=== PATIENT | female | born 1945 | race Caucasian/White ===

== ENCOUNTER → 2019-09-10 11:54 | Outpatient (CLI) | payer MEDICARE, OTHER, SELFPAY ==
--- NOTE | 2019-09-10 12:39 | DI.RAD.S_ITS ---
PROCEDURE: XR KUB INDICATIONS: kidney stones TECHNIQUE: One view of the abdomen acquired. COMPARISON: Outside Film, CR, XR ABDOMEN 1 VIEW, 12/18/2018, 8:27. FINDINGS: Surgical changes and devices: And/or removal of left ureterovesicular stent. Bowel: Bowel gas pattern is normal. Soft tissues: Calcifications appear unchanged overlying the right renal shadow. No definitive calcifications are identified overlying the left renal shadow. Calcifications are noted within the pelvis likely phleboliths and are unchanged. Visualized solid organ contours appear normal in size. Bones: No suspicious bony lesions. IMPRESSION: Unchanged calcifications overlying the right renal shadow. Dictated by: Yakelin Hernández M.D. on 09/10/2019 at 16:11 Approved by: Yakelin Hernández M.D. on 09/10/2019 at 16:11
== END ==
PROVIDERS: Family Provider Physician Assistant Medical; PCP Physician Assistant Medical; Referring Provider Specialist; Visit Provider Specialist
DX: N20.0 Calculus of kidney (principal)
CPT/HCPCS: 74018

== ENCOUNTER → 2020-11-14 11:47 | Outpatient (CLI) | payer MEDICARE, OTHER, SELFPAY ==
--- NOTE | 2020-11-14 | DI.RAD.S_ITS ---
PROCEDURE: XR CHEST 2V INDICATIONS: cough since stroke, concerns of aspiration TECHNIQUE: 2 views of the chest were acquired. COMPARISON: None. FINDINGS: Surgical changes and devices: None. Lungs and pleura: Lungs are clear. No pleural effusions or pneumothorax. Mediastinum: Mediastinal contours are normal. Heart size is normal. Bones and chest wall: No suspicious bony abnormalities. Soft tissues appear unremarkable. IMPRESSION: No acute cardiopulmonary abnormality Dictated by: Brandon Baldwin M.D. on 11/14/2020 at 13:34 Approved by: Brandon Baldwin M.D. on 11/14/2020 at 13:34
== END ==
PROVIDERS: Family Provider Physician Assistant Medical; PCP Physician Assistant Medical; Referring Provider Physician Assistant; Visit Provider Physician Assistant
DX: R05 Cough (principal); R13.10 Dysphagia, unspecified
CPT/HCPCS: 71046

== ENCOUNTER 2021-11-22 13:30 | Outpatient (RCR) | payer MEDICARE, OTHER, SELFPAY ==
--- NOTE | 2021-07-03 18:35 | ST.OPIE ---
Visit Care Team Role Provider Type Darin Askew MD Attending Provider Non-Staff Family Provider Primary Care Provider Referring Provider Specialty: Internal Medicine Address: [address] [place] [address], [place], [address] Email: Speech-Language Pathology Initial Evaluation IN CLASSROOM TUTOR Adult Cognitive Linguistic Eval Start: 07/03/21 15:36 Freq: Status: Active Protocol: Document 07/03/21 15:38 ROBERT (Rec: 07/03/21 16:03 ROBERT [id number]) Adult Cognitive Linguistic Evaluation Session Time Visit Start Time 15:30 Visit Stop Time 16:30 Total Visit Minutes 60 Visit Information Visit Number Initial Evaluation, 03/05 Plan of Care Dates 07/03/21 - 09/28/21 Insurance Information Medicare Referral Referring Provider Dr. Darin Askew Reason for Referral CVA Setting Assessment Location Outpatient Care Visit Type Note Type Initial evaluation Next Note Type Next Note Type Treatment Note Patient Information Identification Type Name,ID Card Patient History The pt is a 75-yr-old female who 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 She spent 1 month in [facility]) followed by 2 wks in inpatient rehab prior to discharge home with . The pt and her spouse discontinued HH as they felt the staff was not reliable. The pt was seen for at [facility], 1x/ wk for ~3 mos. The pt reported having a hard time producing speech and formulating her thoughts. She felt her comprehension was strong. She enjoys using her iPad and frequently uses it for Facebook, games, internet, and movies. She is not using her computer at this time and did not express a desire for it. She communicates with family by phone or in-person visits. Her spouse reported limited opportunities for the pt to converse with others, describing both himself and the pt as introverted, and stating that they infrequently have substantive conversations at home. The pt's primary opportunity for conversation is with her daughters by phone. The couple is in the process of moving from [facility] to the [facility] to be closer to the pt's daughters and their families, who live in [place]. 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 The pt is more interested in iPad than the paper tasks that were assigned during last outpt course, per spouse report. Subjective Patient Report The pt arrived on time accompanied by her , who was present throughout and provided most of the case history supplemental to medical records and pt's verbal contributions. Assessment Oral Motor Examination Completed Yes Results Symmetrical features at rest. Minimal right side weakness during oral motor tasks. Minimal lingual deviation to right side upon protrusion and mild weakness of lateral lingual movements. Buccal and labial weakness was noted, greater on right side, during tasks involving filling cheeks with air and moving air laterally; consistent labial escape noted. The pt was able to make complete labial seal around a drinking straw, however. Informal Assessment Receptive Language Normal WNL for egocentric conversation; requires further assessment Expressive Language Normal No Formal Assessment Administration Initiated Results Word recall was informally assessed using pictures from the [place] Naming Test. The pt named pictures with 96% accuracy but with significant semantic and phonemic paraphasias. Naming errors included machine gun for tank; cat for tiger; and violin for guitar. Examples of paraphasias include cheerleece for cheerleader; bipe for pipe; and gove for glove. Correction of most paraphasias was attempted, the majority successful but often requiring several attempts. The pt benefited from slowing rate of speech and being given extended time. Similar paraphasias were noted in conversation. The pt did not appear to search for words but rather exhibited difficulty accurately articulating target words. The targets were appropriate to the conversation. No overt impairments were noted in auditory comprehension during egocentric conversation. The pt followed simple directions without difficulty. 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 She is able to express familiar topics and convey her meanings with mild-moderate burden on the listener. She demonstrates good awareness of deficits and motivation to improve. Cognitive Communication Deficits Self-awareness of Cognitive- Predictive awareness (able to Communication Deficits predict problem; impact of impairments) Concomitant Factors Concomitant Factors Other (comment) Comment Limited opportunity for communication with others. Impact on Functioning Activity Limits/Particip.Rest. Mod: Interpersonal Interactions Community Prognosis Prognosis Good Based on Cognitive status,Duration of symptoms/severity Plan of Care Speech-Language Treatment Yes Frequency 1x/wk Duration 16 wks Patient/Caregiver Education Described results of evaluation,Patient expressed understanding of evaluation, Patient expressed agreement with goals and treatment plans ,Family/caregivers expressed understanding of evaluation, Family/caregivers expressed agreement with goals and treatment plan,Patient requires further education/ training,Family/caregivers require further education/ training Short Term Goals 1. The pt will participate in further assessment of expressive and receptive language skills to guide POC. 2. The pt will perform oral motor exercises to improve control of articulators and speech precision/accuracy. 3. The pt will demonstrate understanding of speech strategies by using them with 80% accuracy in structured therapeutic tasks. Additional goals to be developed pending further assessment Mcfp Goals 1. The pt will produce speech and language WFL to improve her ability to communicate effectively and with greater ease with others. Additional goals to be developed pending further assessment Discharge Recommendations Outpatient therapy
--- NOTE | 2021-07-10 17:45 | ST.OPTN ---
Visit Care Team Role Provider Type Darin Askew MD Attending Provider Non-Staff Family Provider Primary Care Provider Referring Provider Address: [address] [place] [address], [place], [address] AIRCRAFT PAINTER Treatment Note AIRCRAFT PAINTER Treatment Note Start: 07/10/21 18:30 Freq: Status: Active Protocol: Document 07/10/21 18:30 ROBERT (Rec: 07/10/21 18:31 ROBERT [id number]) Speech Pathology Treatment Note Session Time Visit Start Time 14:30 Visit Stop Time 15:20 Total Visit Minutes 50 Visit Information Plan of Care Dates 07/03/21 - 09/28/21 Insurance Information Medicare Setting Treatment Setting Outpatient Care Next Note Type Next Note Type Treatment Note General Information Patient History The pt is a 75-yr-old female who 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 She spent 1 month in [facility]) followed by 2 wks in inpatient rehab prior to discharge home with . The pt and her spouse discontinued HH as they felt the staff was not reliable. The pt was seen for at [facility], 1x/ wk for ~3 mos. The pt reported having a hard time producing speech and formulating her thoughts. She felt her comprehension was strong. She enjoys using hers iPad and frequently uses it for Fb, games, internet, and movies. She is not using her computer at this time and didn 't express a desire for it. She communicates with family by phone or in-person visits. Her spouse reported limited opportunities for the pt to converse with others, describing both himself and the pt as introverted, and stating that they infrequently have substantive conversations at home. The pt' s primary opportunity for conversation is with her daughters by phone. The couple is in the process of moving from [facility] to the [facility] to be closer to the pt's daughters and their families, who live in [place]. Subjective Observations/Patient Presentation The pt arrived on time. No new complaints. Chief Complaint(s) Speech,Language Patient Knowledge/Awareness of AIRCRAFT PAINTER Role Good in Treatment Objective Short Term Goals 1. The pt will participate in further assessment of expressive and receptive language skills to guide POC. 2. The pt will perform oral motor exercises to improve control of articulators and speech precision/accuracy. 3. The pt will demonstrate understanding of speech strategies by using them with 80% accuracy in structured therapeutic tasks. Additional goals to be developed pending further assessment Principal Java Developer Goals 1. The pt will produce speech and language WFL to improve her ability to communicate effectively and with greater ease with others. Additional goals to be developed pending further assessment Treatment Activities Administered Golden Diagnostic Aphasia Examination (BDAE) including Golden Naming Test ( BNT), short form, with the following results: Aphasia Severity Rating Scale: (3/5) The patient can discuss almost all everyday problems with little or no assistance. Reduction of speech and/or comprehension, however, makes conversation about certain material difficult or impossible. Picture Description: FLUENCY: Phrase Length /, 100%ile; Melodic Line , 07/31, 60%%ile; Grammatical Form /, 70%ile. Phonemic and semantic paraphasias were present in > 75% of phrases. CONVERSATION/EXPOSITORY SPEECH: Simple Social Responses 6/, 50%ile AUDITORY COMPREHENSION: Basic Word Discrimination 14/16,40%; Commands 9/10, 70%ile (pt verbalized acknowledgement of error independently after the task completion); Complex Ideational Material 6/6, 100% ile. ARTICULATION: Agility /, 40% ile. RECITATION: Automatized Sequences 04/27,30%ile. REPETITION: Words 4/5, 60%ile; Sentences 1/2, 60%ile; NAMING: Responsive Naming , 100%ile; Golden Naming Test , 85%ile; Special Categories; 02/04, 100%ile PARAPHASIA: /, 20%ile, primarily phonemic (09/19, 20% ile), occasionally semantic (, 20%ile) READING: Matching Cases & Scripts 4/, 100%ile; Number Matching 04/27, 10%ile; Picture- Word Matching 02/27, 10%ile; Oral Word Reading , 100% ile; Oral Sentence Reading 03/31 , 60%ile; Oral Sentence Comprehension 2/3, 50%ile; Sentence/Paragraph Comprehension 05/28, 100%ile. WRITING: Form , 100%ile; Letter Choice , 60%ile; Motor Facility , 50%ile; Primer Words 4/4, 100%ile; Regular Phonics 2/2, 100%ile; Written Picture Naming 4/4, 100%ile;and Narrative Writing all 100%ile; Regular Phonics1/ 2, 50%ile; Common Irregular Words 3/3, 100%ile; Written Picture Naming 4/4, 100%ile; and NArrative Writing 08/04, 40 %ile. Phonemic errors included additions (stolved for solved), omissions (ouse for house), and substitutions (/b/ for /p/: Episcobal for Mandaen) Semantic errors example: foggy for falling (seen in narrative writing task). Assessment Impairments Identified Expressive language Assessment of Overall Progress Unchanged Assessment of Improvement The pt presents with moderate expressive aphasia characterized primarily by the presence of frequent phonemic and semantic paraphasias without obvious or reported WFD. Syntax, prosodic features are WNL. Pt also presents with mild receptive aphasia per BDAE results, although skills are WFL for basic conversation and therapeutic tasks. Reviewed with Patient Goals,Progress Being Made,Home Exercise Program Patient/Caregiver Understanding Good Plan Amount of Therapy Recommended 6 Months Frequency of Treatment Once a Week Length of Session 45 Minutes Therapeutic Contents Client Education,Expressive Language Training,Reading Comprehension Provided Patient/Caregiver Instruction Home Exercise Program,Plan of Care,Questions/Concerns Therapy Recommendations Continue with Current Program
--- NOTE | 2021-07-18 14:25 | ST.OPTN ---
Visit Care Team Role Provider Type Darin Askew MD Attending Provider Non-Staff Family Provider Primary Care Provider Referring Provider Address: [address] [place] [address], [place], [address] COLLABORATING SUPERVISING PHYSICIAN Treatment Note COLLABORATING SUPERVISING PHYSICIAN Treatment Note Start: 07/10/21 18:30 Freq: Status: Active Protocol: Document 07/18/21 14:30 ROBERT (Rec: 07/25/21 12:17 ROBERT [id number]) Speech Pathology Treatment Note Session Time Visit Start Time 13:30 Visit Stop Time 14:15 Total Visit Minutes 45 Visit Information Visit Number 05/03 Plan of Care Dates 07/03/21 - 09/28/21 Insurance Information Medicare Setting Treatment Setting Outpatient Care Next Note Type Next Note Type Treatment Note General Information Patient History The pt is a 75-yr-old female who 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 She spent 1 month in [facility]) followed by 2 wks in inpatient rehab prior to discharge home with . The pt and her spouse discontinued HH as they felt the staff was not reliable. The pt was seen for at [facility], 1x/ wk for ~3 mos. The pt reported having a hard time producing speech and formulating her thoughts. She felt her comprehension was strong. She enjoys using hers iPad and frequently uses it for Fb, games, internet, and movies. She is not using her computer at this time and didn 't express a desire for it. She communicates with family by phone or in-person visits. Her spouse reported limited opportunities for the pt to converse with others, describing both himself and the pt as introverted, and stating that they infrequently have substantive conversations at home. The pt' s primary opportunity for conversation is with her daughters by phone. The couple is in the process of moving from [facility] to the [facility] to be closer to the pt's daughters and their families, who live in [place]. Subjective Observations/Patient Presentation The pt arrived on time. No new complaints. Chief Complaint(s) Speech,Language Rehab Expectation/Goals: Patient Goals Improve ability to speak smoothly, easily Patient Knowledge/Awareness of COLLABORATING SUPERVISING PHYSICIAN Role Good in Treatment Objective Short Term Goals 1. The pt will participate in further assessment of expressive and receptive language skills to guide POC. 2. The pt will perform oral motor exercises to improve control of articulators and speech precision/accuracy. 3. The pt will demonstrate understanding of speech strategies by using them with 80% accuracy in structured therapeutic tasks. Additional goals to be developed pending further assessment Chcf Goals 1. The pt will produce speech and language WFL to improve her ability to communicate effectively and with greater ease with others. Additional goals to be developed pending further assessment Treatment Activities Continued assessment of oral motor speech production with DDK tasks. Pt performed WNL with /p/, /t/, and /k/ in isolation; reduced coordination, accuracy and speed observed with /p-t-k/ sequence. Recommended performing tasks as part of HEP. Instructions were provided in writing. Initiated expressive language training via education and training in tapping method using phrases and short sentences. Improved synchronizing of speech and finger tapping with practice. Improved articulatory accuracy with reduced rate of speech. Skilled feedback provided, including targeted progression of tapping strategy from structured tasks to conversation, and instructions for home practice provided in writing. Assessment Patient Response to Treatment Good Rehab Potential Good Impairments Identified Expressive language,Speech Progress Towards Goals Good Progress Assessment of Overall Progress Unchanged Assessment of Improvement The pt was responsive to education and instruction in tapping method, the use of which improved articulatory precision. Reviewed with Patient Goals,Progress Being Made,Home Exercise Program Patient/Caregiver Understanding Good Plan Amount of Therapy Recommended 6 Months Frequency of Treatment Once a Week Length of Session 45 Minutes Therapeutic Contents Client Education,Expressive Language Training,Reading Comprehension Provided Patient/Caregiver Instruction Home Exercise Program,Plan of Care,Questions/Concerns Therapy Recommendations Continue with Current Program
--- NOTE | 2021-07-30 12:36 | ST.OPTN ---
Visit Care Team Role Provider Type Darin Askew MD Attending Provider Non-Staff Family Provider Primary Care Provider Referring Provider Address: [address] [place] [address], [place], [address] AIRCRAFT ENGINE MECHANIC OVERHAUL Treatment Note AIRCRAFT ENGINE MECHANIC OVERHAUL Clinical Instructor Line Start: 07/30/21 12:22 Freq: Status: Active Protocol: Document 07/30/21 12:22 ROBERT (Rec: 07/30/21 12:22 ROBERT [id number]) Clinical Instructor Signature Clinical Instructor Clinical Instructor Yes AIRCRAFT ENGINE MECHANIC OVERHAUL Treatment Note Start: 07/10/21 18:30 Freq: Status: Active Protocol: Document 07/30/21 11:59 EK (Rec: 07/30/21 12:17 EK [id number]) Speech Pathology Treatment Note Session Time Visit Start Time 14:30 Visit Stop Time 15:20 Total Visit Minutes 50 Visit Information Visit Number 06/03 Plan of Care Dates 07/03/21 - 09/28/21 Insurance Information Medicare Setting Treatment Setting Outpatient Care Next Note Type Next Note Type Treatment Note General Information Patient History The pt is a 75-yr-old female who 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 She spent 1 month in [facility]) followed by 2 wks in inpatient rehab prior to discharge home with . The pt and her spouse discontinued HH as they felt the staff was not reliable. The pt was seen for at [facility], 1x/ wk for ~3 mos. The pt reported having a hard time producing speech and formulating her thoughts. She felt her comprehension was strong. She enjoys using hers iPad and frequently uses it for Fb, games, internet, and movies. She is not using her computer at this time and didn 't express a desire for it. She communicates with family by phone or in-person visits. Her spouse reported limited opportunities for the pt to converse with others, describing both himself and the pt as introverted, and stating that they infrequently have substantive conversations at home. The pt' s primary opportunity for conversation is with her daughters by phone. The couple is in the process of moving from [facility] to the [facility] to be closer to the pt's daughters and their families, who live in [place]. Subjective Observations/Patient Presentation The pt arrived on time. No new complaints. Session conducted and note written by student AIRCRAFT ENGINE MECHANIC OVERHAUL Desiree Corado under AIRCRAFT ENGINE MECHANIC OVERHAUL supervision. Chief Complaint(s) Speech,Language Rehab Expectation/Goals: Patient Goals Improve ability to speak smoothly, easily Patient Knowledge/Awareness of AIRCRAFT ENGINE MECHANIC OVERHAUL Role Good in Treatment Objective Short Term Goals 1. The pt will participate in further assessment of expressive and receptive language skills to guide POC. 2. The pt will perform oral motor exercises to improve control of articulators and speech precision/accuracy. 3. The pt will demonstrate understanding of speech strategies by using them with 80% accuracy in structured therapeutic tasks. Additional goals to be developed pending further assessment Dry Chain Offbearer Goals 1. The pt will produce speech and language WFL to improve her ability to communicate effectively and with greater ease with others. Additional goals to be developed pending further assessment Treatment Activities Targeted minimal pair /b/ and /p/ words/phrases in order to increase pt's awareness of her de-voicing errors as well as differentiating between the two sounds. When the pt slowed her rate of speech, accuracy increased. Provided education RE clear speech strategies. Collaborated with pt to create a list of 10 different functional phrases for HEP to continue practicing clear speech strategies. Assessment Patient Response to Treatment Good Rehab Potential Good Impairments Identified Expressive language,Speech Progress Towards Goals Good Progress Assessment of Overall Progress Unchanged Assessment of Improvement Pt was responsive to clear speech strategies; when implemented, her articulatory precision greatly improved. Pt intermittently utilized the tapping method but benefitted more from simple reminders to slow down her rate of speech. Reviewed with Patient Goals,Progress Being Made,Home Exercise Program Patient/Caregiver Understanding Good Plan Amount of Therapy Recommended 6 Months Frequency of Treatment Once a Week Length of Session 45 Minutes Therapeutic Contents Client Education,Expressive Language Training,Reading Comprehension Provided Patient/Caregiver Instruction Home Exercise Program,Plan of Care,Questions/Concerns Therapy Recommendations Continue with Current Program
--- NOTE | 2021-08-07 16:56 | ST.OPTN ---
Visit Care Team Role Provider Type Darin Askew MD Attending Provider Non-Staff Family Provider Primary Care Provider Referring Provider Address: [address] [place] [address], [place], [address] WHEELCHAIR RENTAL CLERK Treatment Note WHEELCHAIR RENTAL CLERK Clinical Instructor Line Start: 07/30/21 12:22 Freq: Status: Active Protocol: Document 08/07/21 16:56 ROBERT (Rec: 08/07/21 16:56 ROBERT [id number]) Clinical Instructor Signature Clinical Instructor Clinical Instructor Yes WHEELCHAIR RENTAL CLERK Treatment Note Start: 07/10/21 18:30 Freq: Status: Active Protocol: Document 08/07/21 13:01 EK (Rec: 08/07/21 13:18 EK [id number]) Speech Pathology Treatment Note Session Time Visit Start Time 13:30 Visit Stop Time 14:15 Total Visit Minutes 45 Visit Information Visit Number 07/03 Plan of Care Dates 07/03/21 - 09/28/21 Insurance Information Medicare Setting Treatment Setting Outpatient Care Visit Type Note Type Treatment Note Next Note Type Next Note Type Treatment Note General Information Patient History The pt is a 75-yr-old female who 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 She spent 1 month in [facility]) followed by 2 wks in inpatient rehab prior to discharge home with . The pt and her spouse discontinued as they felt the staff was not reliable. The pt was seen for at [facility], 1x/ wk for ~3 mos. The pt reported having a hard time producing speech and formulating her thoughts. She felt her comprehension was strong. She enjoys using hers iPad and frequently uses it for Fb, games, internet, and movies. She is not using her computer at this time and didn 't express a desire for it. She communicates with family by phone or in-person visits. Her spouse reported limited opportunities for the pt to converse with others, describing both himself and the pt as introverted, and stating that they infrequently have substantive conversations at home. The pt' s primary opportunity for conversation is with her daughters by phone. The couple is in the process of moving from [facility] to the [facility] to be closer to the pt's daughters and their families, who live in [place]. Subjective Observations/Patient Presentation The pt arrived on time. No new complaints. Session conducted and note written by student WHEELCHAIR RENTAL CLERK Desiree Corado under WHEELCHAIR RENTAL CLERK supervision. Chief Complaint(s) Speech,Language Rehab Expectation/Goals: Patient Goals Improve ability to speak smoothly, easily Patient Knowledge/Awareness of WHEELCHAIR RENTAL CLERK Role Good in Treatment Objective Short Term Goals 1. The pt will participate in further assessment of expressive and receptive language skills to guide POC. GOAL MET. 2. The pt will perform oral motor exercises to improve control of articulators and speech precision/accuracy. 3. The pt will demonstrate understanding of speech strategies by using them with 80% accuracy in structured therapeutic tasks. Group Home Goals 1. The pt will produce speech and language WFL to improve her ability to communicate effectively and with greater ease with others. Treatment Activities Targeted speech clarity with functional phrases, pt recited the phrases clearly in 70% of opportunities. Phrases that contained multi-syllabic words were most difficult but clarity greatly improved when pt implemented the tapping method and slowed her rate of speech. Continued training of clear speech strategies and targeted overall awareness using Apraxia Therapy itz that targets visual and auditory presentation of words/phonemes and repetition. This appeared to be helpful for the pt, especially when given the reminder to tap while saying the target word. Targeted WFD with semantic feature analysis . Pt demonstrated moderate difficulty describing the features of various objects. When given time and prompts to tap her sentence, pt's descriptions improved. Assessment Patient Response to Treatment Good Rehab Potential Good Impairments Identified Expressive language,Speech Progress Towards Goals Good Progress Assessment of Improvement Pt's articulatory precision improves when prompted to utilize tapping method but pt is not yet independently implementing the strategy herself. Pt described semantic feature analysis as stressful due to the difficulty of the task but appeared willing to continue using the method to target her WFD. Reviewed with Patient Goals,Progress Being Made,Home Exercise Program Patient/Caregiver Understanding Good Plan Amount of Therapy Recommended 6 Months Frequency of Treatment Once a Week Length of Session 45 Minutes Therapeutic Contents Client Education,Expressive Language Training,Reading Comprehension Provided Patient/Caregiver Instruction Home Exercise Program,Plan of Care,Questions/Concerns Therapy Recommendations Continue with Current Program
--- NOTE | 2021-09-04 16:05 | ST.OPTN ---
Visit Care Team Role Provider Type Darin Askew MD Attending Provider Non-Staff Family Provider Primary Care Provider Referring Provider Address: [address] [place] [address], [place], [address] ORANGE PICKER MACHINE OPERATOR Treatment Note ORANGE PICKER MACHINE OPERATOR Clinical Instructor Line Start: 07/30/21 12:22 Freq: Status: Active Protocol: Document 09/04/21 16:04 ROBERT (Rec: 09/04/21 16:04 ROBERT [id number]) Clinical Instructor Signature Clinical Instructor Clinical Instructor Yes ORANGE PICKER MACHINE OPERATOR Treatment Note Start: 07/10/21 18:30 Freq: Status: Active Protocol: Document 09/04/21 15:28 EK (Rec: 09/04/21 15:51 EK [id number]) Speech Pathology Treatment Note Session Time Visit Start Time 13:30 Visit Stop Time 14:20 Total Visit Minutes 50 Visit Information Visit Number 08/03 Plan of Care Dates 07/03/21 - 09/28/21 Insurance Information Medicare Setting Treatment Setting Outpatient Care Visit Type Note Type Treatment Note Next Note Type Next Note Type Treatment Note General Information Patient History The pt is a 75-yr-old female who 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 She spent 1 month in [facility]) followed by 2 wks in inpatient rehab prior to discharge home with . The pt and her spouse discontinued as they felt the staff was not reliable. The pt was seen for ST at [facility], 1x/ wk for ~3 mos. The pt reported having a hard time producing speech and formulating her thoughts. She felt her comprehension was strong. She enjoys using hers iPad and frequently uses it for Fb, games, internet, and movies. She is not using her computer at this time and didn 't express a desire for it. She communicates with family by phone or in-person visits. Her spouse reported limited opportunities for the pt to converse with others, describing both himself and the pt as introverted, and stating that they infrequently have substantive conversations at home. The pt' s primary opportunity for conversation is with her daughters by phone. The couple is in the process of moving from [facility] to the [facility] to be closer to the pt's daughters and their families, who live in [place]. Subjective Identification Type Name Others Present Additional Therapist Observations/Patient Presentation The pt arrived on time. No new complaints. Session conducted and note written by student ORANGE PICKER MACHINE OPERATOR Desiree Corado under ORANGE PICKER MACHINE OPERATOR supervision. Chief Complaint(s) Speech,Language Rehab Expectation/Goals: Patient Goals Improve ability to speak smoothly, easily Patient Knowledge/Awareness of ORANGE PICKER MACHINE OPERATOR Role Good in Treatment Parent/Caretake Knowledge/Awareness of Good ORANGE PICKER MACHINE OPERATOR Role in Treatment Objective Short Term Goals 1. The pt will perform oral motor exercises to improve control of articulators and speech precision/accuracy. 2. The pt will demonstrate understanding of speech strategies by using them with 80% accuracy in structured therapeutic tasks. Supervisor Maintenance And Custodians Goals 1. The pt will produce speech and language WFL to improve her ability to communicate effectively and with greater ease with others. Treatment Activities Targeted speech clarity with functional phrases, pt recited the phrases clearly in 70% of opportunities. When prompted to tap and slow her rate of speech, clarity increased to 90%. Targeted WFD with semantic feature analysis. Pt demonstrated mild difficulty describing the features of various objects. As the session progressed, her descriptions became more detailed. Pt demonstrated WFD four times over the course of the session. Provided pt with materials targeting various skills (i.e. word recall, categorization, etc.) to incorporate into her HEP. With items that could be categorized as cleaning products pt required mod-max cueing in order to list 7 items. One instance of WFD during this task caused a communication breakdown in which pt was unable to name/ describe her target word. Next session will continue to target listing items in categories. Assessment Patient Response to Treatment Good Rehab Potential Good Impairments Identified Expressive language,Speech Progress Towards Goals Good Progress Assessment of Improvement Pt continues to require min- mod cueing to implement tapping during articulation breakdowns. When tapping is utilized, her speech clarity greatly improves. Pt required less cueing compared to last session to produce relevant descriptions during semantic feature analysis task. Pt demonstrated significant difficulty naming items in categories, will continue to target this skill in order to improve pt's word recall. Reviewed with Patient Goals,Progress Being Made,Home Exercise Program Patient/Caregiver Understanding Good Plan Amount of Therapy Recommended 6 Months Frequency of Treatment Once a Week Length of Session 45 Minutes Therapeutic Contents Client Education,Expressive Language Training,Reading Comprehension Provided Patient/Caregiver Instruction Home Exercise Program,Plan of Care,Questions/Concerns Therapy Recommendations Continue with Current Program
--- NOTE | 2021-09-11 15:11 | ST.OPTN ---
Visit Care Team Role Provider Type Darin Askew MD Attending Provider Non-Staff Family Provider Primary Care Provider Referring Provider Address: [address] [place] [address], [place], [address] SCANNING COORDINATOR Treatment Note SCANNING COORDINATOR Clinical Instructor Line Start: 07/30/21 12:22 Freq: Status: Active Protocol: Document 09/11/21 15:10 ROBERT (Rec: 09/11/21 15:10 ROBERT [id number]) Clinical Instructor Signature Clinical Instructor Clinical Instructor Yes SCANNING COORDINATOR Treatment Note Start: 07/10/21 18:30 Freq: Status: Active Protocol: Document 09/11/21 14:49 EK (Rec: 09/11/21 15:07 EK [id number]) Speech Pathology Treatment Note Session Time Visit Start Time 13:30 Visit Stop Time 14:20 Total Visit Minutes 50 Visit Information Visit Number 09/02 Plan of Care Dates 07/03/21 - 09/28/21 Insurance Information Medicare Setting Treatment Setting Outpatient Care Visit Type Note Type Treatment Note Next Note Type Next Note Type Treatment Note General Information Patient History The pt is a 75-yr-old female who 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 She spent 1 month in [facility]) followed by 2 wks in inpatient rehab prior to discharge home with . The pt and her spouse discontinued as they felt the staff was not reliable. The pt was seen for ST at [facility], 1x/ wk for ~3 mos. The pt reported having a hard time producing speech and formulating her thoughts. She felt her comprehension was strong. She enjoys using hers iPad and frequently uses it for Fb, games, internet, and movies. She is not using her computer at this time and didn 't express a desire for it. She communicates with family by phone or in-person visits. Her spouse reported limited opportunities for the pt to converse with others, describing both himself and the pt as introverted, and stating that they infrequently have substantive conversations at home. The pt' s primary opportunity for conversation is with her daughters by phone. The couple is in the process of moving from [facility] to the [facility] to be closer to the pt's daughters and their families, who live in [place]. Subjective Identification Type Name Others Present Additional Therapist Observations/Patient Presentation The pt arrived on time. No new complaints. Session conducted and note written by student SCANNING COORDINATOR Desiree Corado under SCANNING COORDINATOR supervision. Chief Complaint(s) Speech,Language Rehab Expectation/Goals: Patient Goals Improve ability to speak smoothly, easily Patient Knowledge/Awareness of SCANNING COORDINATOR Role Good in Treatment Parent/Caretake Knowledge/Awareness of Good SCANNING COORDINATOR Role in Treatment Patient/Caregiver Compliance with Home Good Exercise Program Objective Short Term Goals 1. The pt will perform oral motor exercises to improve control of articulators and speech precision/accuracy. 2. The pt will demonstrate understanding of speech strategies by using them with 80% accuracy in structured therapeutic tasks. Cut Press Operator Goals 1. The pt will produce speech and language WFL to improve her ability to communicate effectively and with greater ease with others. Treatment Activities Targeted word recall/mental organization by listing words that belong a category (e.g. household tasks, appliances, etc). Pt correctly listed items with 79% accuracy. When given descriptions and asked to name the item described, the pt was >85% accurate, improving as she progressed with the task. Targeted speech clarity through reading passages, pt was 82% intelligible reading poems. Assessment Patient Response to Treatment Good Rehab Potential Good Impairments Identified Expressive language,Speech Progress Towards Goals Good Progress Assessment of Improvement Pt word recall was improved compared to last session. Today, pt only required min- mod cueing and by the end of the task, she was generating most of the words independently. Pt also demonstrated good carryover by independently tapping during articulation breakdowns and moments of WFD. While reading poems, the pt had more difficulty with fricatives and consonant blends. Reviewed with Patient Goals,Progress Being Made,Home Exercise Program Patient/Caregiver Understanding Good Plan Amount of Therapy Recommended 6 Months Frequency of Treatment Once a Week Length of Session 45 Minutes Therapeutic Contents Client Education,Expressive Language Training,Reading Comprehension Provided Patient/Caregiver Instruction Home Exercise Program,Plan of Care,Questions/Concerns Therapy Recommendations Continue with Current Program
--- NOTE | 2021-09-18 15:30 | ST.OPTN ---
Visit Care Team Role Provider Type Darin Askew MD Attending Provider Non-Staff Family Provider Primary Care Provider Referring Provider Address: [address] [place] [address], [place], [address] TRUSTEE OF ESTATE Treatment Note TRUSTEE OF ESTATE Clinical Instructor Line Start: 07/30/21 12:22 Freq: Status: Active Protocol: Document 09/11/21 15:10 ROBERT (Rec: 09/11/21 15:10 ROBERT [id number]) Clinical Instructor Signature Clinical Instructor Clinical Instructor Yes TRUSTEE OF ESTATE Treatment Note Start: 07/10/21 18:30 Freq: Status: Active Protocol: Document 09/18/21 17:39 ROBERT (Rec: 09/18/21 17:40 ROBERT [id number]) Speech Pathology Treatment Note Session Time Visit Start Time 14:30 Visit Stop Time 15:25 Total Visit Minutes 55 Visit Information Visit Number 10/03 Plan of Care Dates 07/03/21 - 09/28/21 Insurance Information Medicare Setting Treatment Setting Outpatient Care Visit Type Note Type Treatment Note Next Note Type Next Note Type Treatment Note General Information Patient History The pt is a 75-yr-old female who 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 She spent 1 month in [facility]) followed by 2 wks in inpatient rehab prior to discharge home with . The pt and her spouse discontinued as they felt the staff was not reliable. The pt was seen for ST at [facility], 1x/ wk for ~3 mos. The pt reported having a hard time producing speech and formulating her thoughts. She felt her comprehension was strong. She enjoys using hers iPad and frequently uses it for Fb, games, internet, and movies. She is not using her computer at this time and didn 't express a desire for it. She communicates with family by phone or in-person visits. Her spouse reported limited opportunities for the pt to converse with others, describing both himself and the pt as introverted, and stating that they infrequently have substantive conversations at home. The pt' s primary opportunity for conversation is with her daughters by phone. The couple is in the process of moving from [facility] to the [facility] to be closer to the pt's daughters and their families, who live in [place]. Subjective Identification Type Name Others Present Additional Therapist Observations/Patient Presentation The pt arrived on time. Forgot her completed HEP worksheets at home but stated that all were completed. She reported an appropriate amount of challenge from tasks. No new complaints; however, the pt was occasionally tearful throughout the session upon reflection/conversation about effects of stroke. When asked if she has support in friends and family, she stated her daughter, granddaughter and , though did not discuss details but instead became tearful. She reported frustration with speech impairments, resulting from both occ WFDs but greater impact of difficulty organizing thoughts into verbal expression. She reported great assistance from tapping, which she uses consistently when talking to her daughter and sister. With this strategy she reports being able to form thoughts into sentences. Chief Complaint(s) Speech,Language Rehab Expectation/Goals: Patient Goals Improve ability to speak smoothly, easily Patient Knowledge/Awareness of TRUSTEE OF ESTATE Role Good in Treatment Parent/Caretake Knowledge/Awareness of Good TRUSTEE OF ESTATE Role in Treatment Patient/Caregiver Compliance with Home Good Exercise Program Objective Short Term Goals 1. The pt will perform oral motor exercises to improve control of articulators and speech precision/accuracy. 2. The pt will demonstrate understanding of speech strategies by using them with 80% accuracy in structured therapeutic tasks. Head Men'S Golf Coach Goals 1. The pt will produce speech and language WFL to improve her ability to communicate effectively and with greater ease with others. Treatment Activities Skilled counseling was provided to the pt with empathy toward the impacts of stroke on daily life and relationships. TRUSTEE OF ESTATE recommended local stroke support group and provided details. The pt performed expressive language tasks: Scrambled sentences targeting thought organization via sentence structure and syntax: 82% acc, aided by instruction of S-V-O sentence structure as guide. Sentence and story completions: 100% acc. Pt initially required extended time and occ examples, likely d/t learning effect, which reduced over the course of the task. Novel sentences were interesting and frequently moderately complex in structure (e.g., compound sentences and/or including dependent clauses). Without use of tapping, the pt's speech was frequently garbled from paraphasias, reducing intelligibility/ comprehensibility to ~70%. Significant improvement with >85% accuracy was achieved with tapping strategy. HEP packet was further developed with instructions provided orally and in writing and with demonstration. All questions were answered. Assessment Patient Response to Treatment Good Rehab Potential Good Impairments Identified Expressive language,Speech Progress Towards Goals Good Progress Assessment of Improvement Impairments in areas of word recall and, to a greater degree, thought/language organization continue to have great impact on the pt's ability to express herself. These are exacerbated by increased rate of speech and significantly reduced with use of tapping strategy. Rapid rate of speech results in increased paraphasias and pt frustration. She demonstrates excellent awareness of benefits of tapping with carryover to functional conversations. Prompts (usually provided by demonstration) are frequently required for the pt to use tapping during therapy sessions. Once familiar with exercises, the pt performed well unscrambling sentences of 4-6 words. She benefited from review of typical [place] S-V-O sentence structure. Often starting with verb identification or question words was helpful to get started. Similarly, once familiar with the tasks, she generated creative novel completions of sentences and simple stories with excellent word choices and syntax. The pt was receptive to counseling and expressed interest in the support group. Suspect she is feeling isolated and experiencing sadness, perhaps grief, from effects of stroke. Grief/ emotional counseling may be very beneficial for this patient, as well as participation in support group and other social opportunities that accommodate her language challenges. Reviewed with Patient Goals,Progress Being Made,Home Exercise Program Patient/Caregiver Understanding Good Plan Amount of Therapy Recommended 6 Months Frequency of Treatment Once a Week Length of Session 45 Minutes Therapeutic Contents Client Education,Expressive Language Training,Reading Comprehension Provided Patient/Caregiver Instruction Home Exercise Program,Plan of Care,Questions/Concerns Therapy Recommendations Continue with Current Program Suggested Referral Other Other Referrals Grief/emotional counseling
--- NOTE | 2021-09-19 11:44 | ST-OP ANOTE ---
Physical, Occupational & Speech Therapy At [facility] Speech Therapy Note 09/19/21: Treatment note of 09/18/21 with recommendation for referral to grief/emotional counseling was faxed by JELLY FILTER TENDER to the pt's PCP, Dr. Darin Askew.
--- NOTE | 2021-09-24 13:40 | ST.OPTN ---
Visit Care Team Role Provider Type Darin Askew MD Attending Provider Non-Staff Family Provider Primary Care Provider Referring Provider Address: [address] [place] [address], [place], [address] INDUSTRIAL ECONOMICS PROFESSOR Treatment Note INDUSTRIAL ECONOMICS PROFESSOR Clinical Instructor Line Start: 07/30/21 12:22 Freq: Status: Active Protocol: Document 09/11/21 15:10 ROBERT (Rec: 09/11/21 15:10 ROBERT [id number]) Clinical Instructor Signature Clinical Instructor Clinical Instructor Yes INDUSTRIAL ECONOMICS PROFESSOR Treatment Note Start: 07/10/21 18:30 Freq: Status: Active Protocol: Document 09/24/21 15:25 ROBERT (Rec: 09/24/21 15:26 ROBERT [id number]) Speech Pathology Treatment Note Session Time Visit Start Time 10:30 Visit Stop Time 11:50 Total Visit Minutes 50 Visit Information Visit Number 11/03 Plan of Care Dates 07/03/21 - 09/28/21 Insurance Information Medicare Setting Treatment Setting Outpatient Care Visit Type Note Type Treatment Note Next Note Type Next Note Type Treatment Note General Information Patient History The pt is a 75-yr-old female who 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 She spent 1 month in [facility]) followed by 2 wks in inpatient rehab prior to discharge home with . The pt and her spouse discontinued as they felt the staff was not reliable. The pt was seen for ST at [facility], 1x/ wk for ~3 mos. The pt reported having a hard time producing speech and formulating her thoughts. She felt her comprehension was strong. She enjoys using hers iPad and frequently uses it for Fb, games, internet, and movies. She is not using her computer at this time and didn 't express a desire for it. She communicates with family by phone or in-person visits. Her spouse reported limited opportunities for the pt to converse with others, describing both himself and the pt as introverted, and stating that they infrequently have substantive conversations at home. The pt' s primary opportunity for conversation is with her daughters by phone. The couple is in the process of moving from [facility] to the [facility] to be closer to the pt's daughters and their families, who live in [place]. Subjective Identification Type Name Others Present Additional Therapist Observations/Patient Presentation The pt arrived on time with completed HEP tasks. Her was present for part of the session. He had some questions related to practices that would improve the couple 's ability to communicate with each other at home, secondary to the pt's stroke effects and his hearing loss. Chief Complaint(s) Speech,Language Rehab Expectation/Goals: Patient Goals Improve ability to speak smoothly, easily Patient Knowledge/Awareness of INDUSTRIAL ECONOMICS PROFESSOR Role Good in Treatment Parent/Caretake Knowledge/Awareness of Good INDUSTRIAL ECONOMICS PROFESSOR Role in Treatment Patient/Caregiver Compliance with Home Good Exercise Program Objective Short Term Goals 1. The pt will perform oral motor exercises to improve control of articulators and speech precision/accuracy. 2. The pt will demonstrate understanding of speech strategies by using them with 80% accuracy in structured therapeutic tasks. [facility] Goals 1. The pt will produce speech and language WFL to improve her ability to communicate effectively and with greater ease with others. Treatment Activities Reviewed the pt's answers to HEP tasks, ~85% acc. The pt reported the tasks were challenging but enjoyable. The pt corrected and completed new crossword puzzle items, naming words and synonyms from descriptions and letter cues requiring mod prompts particularly to correct errors . In these cases she exhibited difficulty shifting away from the errored answer, which in most cases fit the description but not the letter spaces in the puzzle. The pt's handwriting was largely legible and only 2 spelling errors were observed. The pt stated this is not her typical handwriting, with reduced legibility occurring post- stroke. Additionally, the pt reported having occasional difficulty tracking conversation from others when language becomes lengthy, complex, or the person speaks very quickly. Education and feedback was provided to the pt and her . During discussions of the consequences of the pt's stroke and importance of rehab , she again became tearful, indicating the personal impact of these effects. The couple expressed interest in attending the local Stroke Support Group, which is highly recommended. The pt's spouse again reported that the couple do not engage in extensive conversations at home, but noted that when the pt is with female friends and family members, she engages quite a lot more, which the pt confirmed. She stated that use of the tapping strategy enables her to better participate in such conversations. This was demonstrated as the pt used this strategy during our discussion, with prompting, improving speech fluidity and articulation and diminishing the majority of paraphasias. The pt's 's questions were answered with recommendations to improve communication between the couple at home, including getting each other's attention prior to stating important information and speaking face- to-face, which may require effort from both of them to move to the presence of the other. This should reduce conversationa breakdowns that stem from either the pt's reduced speech intelligibility and her 's hearing loss. The couple verbalized agreement. Discussed POC and agreed that, in light of this INDUSTRIAL ECONOMICS PROFESSOR's upcoming departure from this clinic, the pt would continue her POC with a different INDUSTRIAL ECONOMICS PROFESSOR at this clinic. Assessment Patient Response to Treatment Good Rehab Potential Good Impairments Identified Expressive language,Speech Progress Towards Goals Good Progress Assessment of Improvement The pt performed word recall and writing tasks well with some errors in identifying synonyms to fit the parameters of crossword puzzles. HEP tasks appear to be appropriate in complexity for the pt. Mild micrographia was observed with handwriting, though writing was largely legible. Recommend further handwriting and auditory receptive language skills assessment and treatment be incorporated into the pt's POC. Reviewed with Patient Goals,Progress Being Made,Home Exercise Program Patient/Caregiver Understanding Good Plan Amount of Therapy Recommended 6 Months Frequency of Treatment Once a Week Length of Session 45 Minutes Therapeutic Contents Client Education,Expressive Language Training,Reading Comprehension Provided Patient/Caregiver Instruction Home Exercise Program,Plan of Care,Questions/Concerns Therapy Recommendations Continue with Current Program Suggested Referral Other Other Referrals Grief/emotional counseling
--- NOTE | 2021-10-04 12:55 | ST.OPTN ---
Visit Care Team Role Provider Type Darin Askew MD Attending Provider Non-Staff Family Provider Primary Care Provider Referring Provider Address: [address] [place] [address], [place], [address] BEATER ENGINEER HELPER Treatment Note BEATER ENGINEER HELPER Clinical Instructor Line Start: 07/30/21 12:22 Freq: Status: Active Protocol: Document 09/11/21 15:10 ROBERT (Rec: 09/11/21 15:10 ROBERT [id number]) Clinical Instructor Signature Clinical Instructor Clinical Instructor Yes BEATER ENGINEER HELPER Treatment Note Start: 07/10/21 18:30 Freq: Status: Active Protocol: Document 10/04/21 12:40 LNK (Rec: 10/04/21 12:55 LNK [id number]) Speech Pathology Treatment Note Session Time Visit Start Time 10:30 Visit Stop Time 11:40 Total Visit Minutes 70 Visit Information Visit Number 12/03 Plan of Care Dates 07/03/21 - 09/28/21 Insurance Information Medicare Setting Treatment Setting Outpatient Care Visit Type Note Type Progress Note Next Note Type Next Note Type Treatment Note General Information Patient History The pt is a 75-yr-old female who 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 She spent 1 month in [facility]) followed by 2 wks in inpatient rehab prior to discharge home with . The pt and her spouse discontinued as they felt the staff was not reliable. The pt was seen for ST at [facility], 1x/ wk for ~3 mos. The pt reported having a hard time producing speech and formulating her thoughts. She felt her comprehension was strong. She enjoys using hers iPad and frequently uses it for Fb, games, internet, and movies. She is not using her computer at this time and didn 't express a desire for it. She communicates with family by phone or in-person visits. Her spouse reported limited opportunities for the pt to converse with others, describing both himself and the pt as introverted, and stating that they infrequently have substantive conversations at home. The pt' s primary opportunity for conversation is with her daughters by phone. The couple is in the process of moving from [facility] to the [facility] to be closer to the pt's daughters and their families, who live in [place]. Subjective Identification Type Name Others Present Additional Therapist Observations/Patient Presentation The pt arrived on time with completed HEP tasks. Her was not present for part of the session. Chief Complaint(s) Speech,Language Rehab Expectation/Goals: Patient Goals Improve ability to speak smoothly, easily Patient Knowledge/Awareness of BEATER ENGINEER HELPER Role Good in Treatment Parent/Caretake Knowledge/Awareness of Good BEATER ENGINEER HELPER Role in Treatment Patient/Caregiver Compliance with Home Good Exercise Program Objective Short Term Goals 1. The pt will perform oral motor exercises to improve control of articulators and speech precision/accuracy. 2. The pt will demonstrate understanding of speech strategies by using them with 80% accuracy in structured therapeutic tasks. [facility] Goals 1. The pt will produce speech and language WFL to improve her ability to communicate effectively and with greater ease with others. Treatment Activities Reviewed the pt's answers to HEP tasks, ~75% acc. The pt reported the tasks were challenging but enjoyable. The pt corrected and completed 5/ 6 new crossword puzzles. Education and feedback was provided to the pt regarding the strategy of talking around a word' when experiencing WFD. Pt was able to do this when describing her job before alf. Demonstrated the ways she helped me to understand what she was saying. Practiced this strategy x5 with different words. Pt HEP to try to use new strategy 10x during week. The couple expressed interest in attending the local Stroke Support Group, which is highly recommended. Assessment Patient Response to Treatment Good Rehab Potential Good Impairments Identified Expressive language,Speech Progress Towards Goals Good Progress Assessment of Improvement Impairments in areas of word recall and, to a greater degree, thought/language organization continue to have great impact on the pt's ability to express herself. These are exacerbated by increased rate of speech and significantly reduced with use of tapping strategy. Rapid rate of speech results in increased paraphasias and pt frustration. She demonstrates excellent awareness of benefits of tapping with carryover to functional conversations. Prompts ( usually provided by demonstration) are frequently required for the pt to use tapping during therapy sessions. Once familiar with exercises, the pt performed well unscrambling sentences of 4-6 words. She benefited from review of typical [place] S-V- O sentence structure. Often starting with verb identification or question words was helpful to get started. Similarly, once familiar with the tasks, she generated creative novel completions of sentences and simple stories with excellent word choices and syntax. The pt was receptive to counseling and expressed interest in the support group. Suspect she is feeling isolated and experiencing sadness, perhaps grief, from effects of stroke. Grief/ emotional counseling may be very beneficial for this patient, as well as participation in support group and other social opportunities that accommodate her language challenges. [ End ] Reviewed with Patient Goals,Progress Being Made,Home Exercise Program Patient/Caregiver Understanding Good Plan Amount of Therapy Recommended 6 Months Frequency of Treatment Once a Week Length of Session 45 Minutes Therapeutic Contents Client Education,Expressive Language Training,Reading Comprehension Provided Patient/Caregiver Instruction Home Exercise Program,Plan of Care,Questions/Concerns Therapy Recommendations Continue with Current Program Suggested Referral Other Other Referrals Grief/emotional counseling
--- NOTE | 2021-10-04 12:58 | ST.OPPOC ---
Physical, Occupational & Speech Therapy At [facility] Visit Care Team Role Provider Type Darin Askew MD Attending Provider Non-Staff Family Provider Primary Care Provider Referring Provider Address: [address] [place] [address], [id number] Speech Pathology Plan of Care WEAPONS ENGINEER Clinical Instructor Line Start: 07/30/21 12:22 Freq: Status: Active Protocol: Document 09/11/21 15:10 ROBERT (Rec: 09/11/21 15:10 ROBERT [id number]) Clinical Instructor Signature Clinical Instructor Clinical Instructor Yes Speech Pathology Plan of Care Plan of Care Dates 09/28/21-12/29/[address] Darin Askew Patient History The pt is a 75-yr-old female who 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 She spent 1 month in [facility]) followed by 2 wks in inpatient rehab prior to discharge home with . The pt and her spouse discontinued HH as they felt the staff was not reliable. The pt was seen for at [facility], 1x/wk for ~3 mos . The pt reported having a hard time producing speech and formulating her thoughts. She felt her comprehension was strong. She enjoys using hers iPad and frequently uses it for Fb, games, internet, and movies. She is not using her computer at this time and didn't express a desire for it. She communicates with family by phone or in-person visits. Her spouse reported limited opportunities for the pt to converse with others, describing both himself and the pt as introverted, and stating that they infrequently have substantive conversations at home. The pt's primary opportunity for conversation is with her daughters by phone. The couple is in the process of moving from [facility] to the [facility] to be closer to the pt's daughters and their families, who live in [place]. Impairments Identified Expressive language,Speech Short Term Goals 1. The pt will perform oral motor exercises to improve control of articulators and speech precision/accuracy. 2. The pt will demonstrate understanding of speech strategies by using them with 80% accuracy in structured therapeutic tasks. [facility] Goals 1. The pt will produce speech and language WFL to improve her ability to communicate effectively and with greater ease with others. Progress Towards Goals Good Progress Comment: Electronically Signed by: JESSICA Melton 10/04/21 [id number] If you are in agreement with this Plan of Care, please return a signed and dated copy. I have reviewed this Plan of Care and certify that the skilled therapy services above are required to meet the patient?s needs. Physician Signature Date Printed Name and Credentials Clinical Instructor Signature Printed Name and Credentials
--- NOTE | 2021-10-12 16:50 | ST.OPTN ---
Visit Care Team Role Provider Type Darin Askew MD Attending Provider Non-Staff Family Provider Primary Care Provider Referring Provider Address: [address] [place] [address], [place], [address] SAP PROJECT MANAGER Treatment Note SAP PROJECT MANAGER Clinical Instructor Line Start: 07/30/21 12:22 Freq: Status: Active Protocol: Document 09/11/21 15:10 ROBERT (Rec: 09/11/21 15:10 ROBERT [id number]) Clinical Instructor Signature Clinical Instructor Clinical Instructor Yes SAP PROJECT MANAGER Treatment Note Start: 07/10/21 18:30 Freq: Status: Active Protocol: Document 10/12/21 16:37 LNK (Rec: 10/12/21 16:50 LNK [id number]) Speech Pathology Treatment Note Session Time Visit Start Time 10:30 Visit Stop Time 11:40 Total Visit Minutes 70 Visit Information Visit Number 12/03 Plan of Care Dates 09/28/21-12/29/21 Insurance Information Medicare Setting Treatment Setting Outpatient Care Visit Type Note Type Progress Note Next Note Type Next Note Type Treatment Note General Information Patient History The pt is a 75-yr-old female who 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 She spent [address] [facility]) followed by 2 wks in inpatient rehab prior to discharge home with . The pt and her spouse discontinued as they felt the staff was not reliable. The pt was seen for ST at [facility], 1x/ wk for ~3 mos. The pt reported having a hard time producing speech and formulating her thoughts. She felt her comprehension was strong. She enjoys using hers iPad and frequently uses it for Fb, games, internet, and movies. She is not using her computer at this time and didn 't express a desire for it. She communicates with family by phone or in-person visits. Her spouse reported limited opportunities for the pt to converse with others, describing both himself and the pt as introverted, and stating that they infrequently have substantive conversations at home. The pt' s primary opportunity for conversation is with her daughters by phone. The couple is in the process of moving from [facility] to the [facility] to be closer to the pt's daughters and their families, who live in [place]. Subjective Identification Type Name Others Present Additional Therapist Observations/Patient Presentation The pt arrived on time. Her was not present for part of the session. Chief Complaint(s) Speech,Language Rehab Expectation/Goals: Patient Goals Improve ability to speak smoothly, easily Patient Knowledge/Awareness of SAP PROJECT MANAGER Role Good in Treatment Parent/Caretake Knowledge/Awareness of Good SAP PROJECT MANAGER Role in Treatment Patient/Caregiver Compliance with Home Good Exercise Program Objective Short Term Goals 1. The pt will perform oral motor exercises to improve control of articulators and speech precision/accuracy. 2. The pt will demonstrate understanding of speech strategies by using them with 80% accuracy in structured therapeutic tasks. [facility] Goals 1. The pt will produce speech and language WFL to improve her ability to communicate effectively and with greater ease with others. Treatment Activities Reviewed the pt's HEP tasks, which she described as a disaster. when asked further , she noted that her was pushing her to provide words when she couldn't. We scripted phrases for her to use regarding her understanding being better than her ability to say the correct words. She felt that these scripts would help her to express her needs when working with her . Reviewed with the pt the strategy of talking around a word' when experiencing WFD. Practiced this strategy x5 with different words. Pt HEP to try to use new strategy 10x during week. The couple noted that they attended the local stroke support group and enjoyed it. Assessment Patient Response to Treatment Good Rehab Potential Good Impairments Identified Expressive language,Speech Progress Towards Goals Good Progress Assessment of Improvement Impairments in areas of word recall and, to a greater degree, thought/language organization continue to have great impact on the pt's ability to express herself. These are exacerbated by increased rate of speech and significantly reduced with use of tapping strategy. She demonstrates excellent awareness of benefits of tapping with carryover to functional conversations. Prompts (usually provided by demonstration) are frequently required for the pt to use tapping during therapy sessions. Reviewed with Patient Goals,Progress Being Made,Home Exercise Program Patient/Caregiver Understanding Good Plan Amount of Therapy Recommended 6 Months Frequency of Treatment Once a Week Length of Session 45 Minutes Therapeutic Contents Client Education,Expressive Language Training,Reading Comprehension Provided Patient/Caregiver Instruction Home Exercise Program,Plan of Care,Questions/Concerns Therapy Recommendations Continue with Current Program Suggested Referral Other Other Referrals Grief/emotional counseling
--- NOTE | 2021-11-05 17:02 | ST.OPTN ---
Visit Care Team Role Provider Type Darin Askew MD Attending Provider Non-Staff Family Provider Primary Care Provider Referring Provider Address: [address] [place] [address], [place], [address] BELTING INSPECTOR Treatment Note BELTING INSPECTOR Clinical Instructor Line Start: 07/30/21 12:22 Freq: Status: Active Protocol: Document 09/11/21 15:10 ROBERT (Rec: 09/11/21 15:10 ROBERT [id number]) Clinical Instructor Signature Clinical Instructor Clinical Instructor Yes BELTING INSPECTOR Treatment Note Start: 07/10/21 18:30 Freq: Status: Active Protocol: Document 11/05/21 16:52 LNK (Rec: 11/05/21 17:02 LNK [id number]) Speech Pathology Treatment Note Session Time Visit Start Time 10:30 Visit Stop Time 11:40 Total Visit Minutes 60 Visit Information Visit Number 03/05 Plan of Care Dates 09/28/21-12/29/21 Insurance Information Medicare Setting Treatment Setting Outpatient Care Visit Type Note Type Progress Note Next Note Type Next Note Type Treatment Note General Information Patient History The pt is a 75-yr-old female who 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 She spent 1 month in [facility]) followed by 2 wks in inpatient rehab prior to discharge home with . The pt and her spouse discontinued as they felt the staff was not reliable. The pt was seen for ST at [facility], 1x/ wk for ~3 mos. The pt reported having a hard time producing speech and formulating her thoughts. She felt her comprehension was strong. She enjoys using hers iPad and frequently uses it for Fb, games, internet, and movies. She is not using her computer at this time and didn 't express a desire for it. She communicates with family by phone or in-person visits. Her spouse reported limited opportunities for the pt to converse with others, describing both himself and the pt as introverted, and stating that they infrequently have substantive conversations at home. The pt' s primary opportunity for conversation is with her daughters by phone. The couple is in the process of moving from [facility] to the [facility] to be closer to the pt's daughters and their families, who live in [place]. Subjective Identification Type Name Others Present Additional Therapist Observations/Patient Presentation The pt arrived on time. Her was present for the session att the request of this BELTING INSPECTOR. Chief Complaint(s) Speech,Language Rehab Expectation/Goals: Patient Goals Improve ability to speak smoothly, easily Patient Knowledge/Awareness of BELTING INSPECTOR Role Good in Treatment Parent/Caretake Knowledge/Awareness of Good BELTING INSPECTOR Role in Treatment Patient/Caregiver Compliance with Home Good Exercise Program Objective Short Term Goals 1. The pt will perform oral motor exercises to improve control of articulators and speech precision/accuracy. 2. The pt will demonstrate understanding of speech strategies by using them with 80% accuracy in structured therapeutic tasks. Driller Helper Goals 1. The pt will produce speech and language WFL to improve her ability to communicate effectively and with greater ease with others. Treatment Activities Spent the session with te pt and her describing her therapy and getting information from her . According to her , pt is not practicing at home, is embarrassed to use tapping strategy with him and basically stays home. Pt agreed with what her said. Strategies to use when she experiences WFD included tapping, writing the word/ sentence, etc. Counseled the pt to become more involved in her therapy as she is currently making only fair progress. She is emotionally labile and does cry frequently . Assessment Patient Response to Treatment Good Rehab Potential Good Impairments Identified Expressive language,Speech Progress Towards Goals Good Progress Assessment of Improvement Pt demonstrates excellent awareness of benefits of tapping with carryover to functional conversations. However, her carryover into her home is minimal. Reviewed with Patient Goals,Progress Being Made,Home Exercise Program Patient/Caregiver Understanding Good Plan Amount of Therapy Recommended 6 Months Frequency of Treatment Once a Week Length of Session 45 Minutes Therapeutic Contents Client Education,Expressive Language Training,Reading Comprehension Provided Patient/Caregiver Instruction Home Exercise Program,Plan of Care,Questions/Concerns Therapy Recommendations Continue with Current Program Suggested Referral Other Other Referrals Grief/emotional counseling
--- NOTE | 2021-11-15 15:29 | ST.OPTN ---
Visit Care Team Role Provider Type Darin Askew MD Attending Provider Non-Staff Family Provider Primary Care Provider Referring Provider Address: [address] [place] [address], [place], [address] OPHTHALMIC NURSE Treatment Note OPHTHALMIC NURSE Clinical Instructor Line Start: 07/30/21 12:22 Freq: Status: Active Protocol: Document 09/11/21 15:10 ROBERT (Rec: 09/11/21 15:10 ROBERT [id number]) Clinical Instructor Signature Clinical Instructor Clinical Instructor Yes OPHTHALMIC NURSE Treatment Note Start: 07/10/21 18:30 Freq: Status: Active Protocol: Document 11/15/21 15:18 LNK (Rec: 11/15/21 15:29 LNK [id number]) Speech Pathology Treatment Note Session Time Visit Start Time 10:30 Visit Stop Time 11:40 Total Visit Minutes 60 Visit Information Visit Number 04/05 Plan of Care Dates 09/28/21-12/29/21 Insurance Information Medicare Setting Treatment Setting Outpatient Care Visit Type Note Type Progress Note Next Note Type Next Note Type Treatment Note General Information Patient History The pt is a 75-yr-old female who 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 She spent 1 month in [facility]) followed by 2 wks in inpatient rehab prior to discharge home with . The pt and her spouse discontinued as they felt the staff was not reliable. The pt was seen for ST at [facility], 1x/ wk for ~3 mos. The pt reported having a hard time producing speech and formulating her thoughts. She felt her comprehension was strong. She enjoys using hers iPad and frequently uses it for Fb, games, internet, and movies. She is not using her computer at this time and didn 't express a desire for it. She communicates with family by phone or in-person visits. Her spouse reported limited opportunities for the pt to converse with others, describing both himself and the pt as introverted, and stating that they infrequently have substantive conversations at home. The pt' s primary opportunity for conversation is with her daughters by phone. The couple is in the process of moving from [facility] to the [facility] to be closer to the pt's daughters and their families, who live in [place]. Subjective Identification Type Name Others Present Additional Therapist Observations/Patient Presentation The pt arrived on time. Chief Complaint(s) Speech,Language Rehab Expectation/Goals: Patient Goals Improve ability to speak smoothly, easily Patient Knowledge/Awareness of OPHTHALMIC NURSE Role Good in Treatment Parent/Caretake Knowledge/Awareness of Good OPHTHALMIC NURSE Role in Treatment Patient/Caregiver Compliance with Home Good Exercise Program Objective Short Term Goals 1. The pt will perform oral motor exercises to improve control of articulators and speech precision/accuracy. 2. The pt will demonstrate understanding of speech strategies by using them with 80% accuracy in structured therapeutic tasks. Concrete Float Maker Goals 1. The pt will produce speech and language WFL to improve her ability to communicate effectively and with greater ease with others. Treatment Activities Structured conversation with pt to observe level of difficulty pt presents in that context. Pt reported going to the stroke support group. She sand her enjoyed themselves and the group. Word finding difficulty targeted with Scatergories ( name the category) and Password (describe the item). Both activities were successful for Marli. Encouraged her to continue her HEP. Assessment Patient Response to Treatment Good Rehab Potential Good Impairments Identified Expressive language,Speech Progress Towards Goals Good Progress Assessment of Improvement Pt demonstrates excellent awareness of benefits of tapping with carryover to functional conversations. However, her carryover into her home is minimal. Reviewed with Patient Goals,Progress Being Made,Home Exercise Program Patient/Caregiver Understanding Good Plan Amount of Therapy Recommended 6 Months Frequency of Treatment Once a Week Length of Session 45 Minutes Therapeutic Contents Client Education,Expressive Language Training,Reading Comprehension Provided Patient/Caregiver Instruction Home Exercise Program,Plan of Care,Questions/Concerns Therapy Recommendations Continue with Current Program Suggested Referral Other Other Referrals Grief/emotional counseling
--- NOTE | 2021-11-22 15:36 | ST.OPTN ---
Visit Care Team Role Provider Type Darin Askew MD Attending Provider Non-Staff Family Provider Primary Care Provider Referring Provider Address: [address] [place] [address], [place], [address] EMPLOYEE'S REPRESENTATIVE Treatment Note EMPLOYEE'S REPRESENTATIVE Clinical Instructor Line Start: 07/30/21 12:22 Freq: Status: Active Protocol: Document 09/11/21 15:10 ROBERT (Rec: 09/11/21 15:10 ROBERT [id number]) Clinical Instructor Signature Clinical Instructor Clinical Instructor Yes EMPLOYEE'S REPRESENTATIVE Treatment Note Start: 07/10/21 18:30 Freq: Status: Active Protocol: Document 11/22/21 15:18 LNK (Rec: 11/22/21 15:36 LNK [id number]) Speech Pathology Treatment Note Session Time Visit Start Time 13:30 Visit Stop Time 14:00 Total Visit Minutes 30 Visit Information Visit Number 05/03 Plan of Care Dates 09/28/21-12/29/21 Insurance Information Medicare Setting Treatment Setting Outpatient Care Visit Type Note Type Progress Note Next Note Type Next Note Type Discharge Summary General Information Patient History The pt is a 75-yr-old female who 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 She spent 1 month in [facility]) followed by 2 wks in inpatient rehab prior to discharge home with . The pt and her spouse discontinued as they felt the staff was not reliable. The pt was seen for ST at [facility], 1x/ wk for ~3 mos. The pt reported having a hard time producing speech and formulating her thoughts. She felt her comprehension was strong. She enjoys using hers iPad and frequently uses it for Fb, games, internet, and movies. She is not using her computer at this time and didn 't express a desire for it. She communicates with family by phone or in-person visits. Her spouse reported limited opportunities for the pt to converse with others, describing both himself and the pt as introverted, and stating that they infrequently have substantive conversations at home. The pt' s primary opportunity for conversation is with her daughters by phone. The couple is in the process of moving from [facility] to the [facility] to be closer to the pt's daughters and their families, who live in [place]. Subjective Identification Type Name Others Present Additional Therapist Observations/Patient Presentation The pt arrived on time. Chief Complaint(s) Speech,Language Rehab Expectation/Goals: Patient Goals Improve ability to speak smoothly, easily Patient Knowledge/Awareness of EMPLOYEE'S REPRESENTATIVE Role Good in Treatment Parent/Caretake Knowledge/Awareness of Good EMPLOYEE'S REPRESENTATIVE Role in Treatment Patient/Caregiver Compliance with Home Good Exercise Program Objective Short Term Goals 1. The pt will perform oral motor exercises to improve control of articulators and speech precision/accuracy. 2. The pt will demonstrate understanding of speech strategies by using them with 80% accuracy in structured therapeutic tasks. Screen Printing Cloth Spreader Goals 1. The pt will produce speech and language WFL to improve her ability to communicate effectively and with greater ease with others. Treatment Activities Structured conversation with pt to observe level of difficulty pt presents in that context. Pt is able to converse with some halting speech , WFD with the ability to retrieve the word ~75% of the time. When asked, pt noted that she felt that she is doing well and that she doesn't think she needs continued speech therapy at this time. Pt remarked that she is able to talk on the phone with her children and friends without difficulty. She is using the tapping strategy which she describes as helpful. Assessment Patient Response to Treatment Good Rehab Potential Good Impairments Identified Expressive language,Speech Progress Towards Goals Good Progress Assessment of Overall Progress Improving Assessment of Improvement Pt stated that she felt ready to discontinue therapy as she has demonstrated improvement. She is able to talk with her children and friends on the phone and participates in a stroke support group monthly. Reviewed with Patient Goals,Progress Being Made,Home Exercise Program Patient/Caregiver Understanding Good Plan Amount of Therapy Recommended No Further Therapy Frequency of Treatment No Further Therapy Therapeutic Contents Client Education,Expressive Language Training,Reading Comprehension Provided Patient/Caregiver Instruction Home Exercise Program,Plan of Care,Questions/Concerns Therapy Recommendations Continue with Current Program, Discharge from Speech Therapy
== END 2021-11-26 16:20 | disposition home or self-care (01) ==
LOC: SP 13:30
PROVIDERS: Family Provider Internal Medicine; PCP Internal Medicine; Referring Provider Internal Medicine; Visit Provider Internal Medicine
DX: F80.1 Expressive language disorder (principal); I69.320 Aphasia following cerebral infarction; R13.10 Dysphagia, unspecified; I69.398 Other sequelae of cerebral infarction; R05.1 Acute cough; E78.5 Hyperlipidemia, unspecified; Z79.02 Long term (current) use of antithrombotics/antiplatelets; I10 Essential (primary) hypertension; M79.89 Other specified soft tissue disorders
CPT/HCPCS: 92507; 92523

== ENCOUNTER → 2021-12-28 11:22 | Outpatient (CLI) | payer MEDICARE, OTHER, SELFPAY ==
[2021-12-28 12:34] LABS: Add Manual Diff / Slide Review NO; Basophils Absolute Auto 100 /uL (0-100); Basophils Percent Auto 0.9 % (0-2); Eosinophils Absolute Auto 200 /uL (0-450); Eosinophils Percent Auto 2.7 % (2-4); Hematocrit 36.1 % (36-46); Hemoglobin 12.3 g/dL (12.0-16.0); Lymphocytes Absolute Auto 1400 /uL (1100-4500); Lymphocytes Percent Auto 20.5 % (25-40); Mean Corpuscular HGB Conc 34.1 % (30-36); Mean Corpuscular Hemoglobin 29.8 PG (26-34); Mean Corpuscular Volume 87.5 fL (80-100); Monocytes Absolute Auto 500 /uL (0-900); Monocytes Percent Auto 6.8 % (3-14); Neutrophils Absolute Auto 4600 /uL (1500-7000); Neutrophils Percent Auto 69.1 % (50-75); Platelet Count 220 X10^3/uL (150-400); Red Blood Cell Count 4.12 X10^6/uL (4.0-5.2); Red Cell Distribution Width 13.1 % (11.6-14.8); White Blood Cell Count 6.7 X10^3/uL (4.5-11.0)
[2021-12-28 12:57] LABS: Alanine Aminotransferase 16 IU/L (<35); Albumin 4.1 g/dL (3.5-5.0); Albumin Globulin Ratio 1.5 (1.0-2.8); Alkaline Phosphatase 109 U/L (38-126); Aspartate Aminotransferase 17 IU/L (14-36); BUN Creatinine Ratio 28.8 (6-22); Bilirubin Total 0.8 mg/dL (0.2-1.3); Blood Urea Nitrogen 21 mg/dL (7-17); Carbon Dioxide 29 mmol/L (22-32); Chloride 105 mmol/L (98-107); Cholesterol 121 mg/dL (140-199); Estimated Glomerular Filt Rate > 60 mL/min (>60); Globulin 2.7 g/dL (1.7-4.1); Glucose 109 mg/dL (80-110); HDL Cholesterol 57 mg/dL (40-60); HEMOLYSIS < 15 (0-50); LDL Cholesterol Calculated 53 mg/dL (<100); Potassium 4.5 mmol/L (3.4-5.1); Sodium 140 mmol/L (137-145); Total Protein 6.8 g/dL (6.3-8.2); Triglycerides 55 mg/dL (35-150)
[2021-12-28 13:02] LABS: Hemoglobin A1C% w Est Avg Glu 5.3 % (4.0-6.0)
[2021-12-28 15:22] LABS: Appearance Urine UA CLEAR; Bilirubin Urine UA NEGATIVE (NEGATIVE); Color Urine UA YELLOW; Glucose Urine UA NEGATIVE (Negative); Ketones Urine UA NEGATIVE (NEGATIVE); Leukocyte Esterase Urine UA 1+ (NEGATIVE); Nitrite Urine UA NEGATIVE (Negative); Occult Blood Urine UA 3+ (Negative); Protein Urine UA 2+ (Negative); Specific Gravity Urine UA >=1.030 (1.000-1.035); Urobilinogen Urine UA 0.2 E.U./dL (0.2)
[2021-12-28 15:28] LABS: Amorphous Sediment Urine 2+; Bacteria Urine Many (>30); Culture Indicated Urine Specimen Cultured; RBC Urine 10-30/HPF (0-5/HPF); Squamous Epithelial Cell Urine 10-30 /HPF (0-5/HPF); WBC Urine 5-10/HPF (0-5/HPF)
== END ==
PROVIDERS: Family Provider Internal Medicine; PCP Family Medicine; Referring Provider Family Medicine; Visit Provider Family Medicine
DX: I63.9 Cerebral infarction, unspecified (principal); R35.0 Frequency of micturition
CPT/HCPCS: 36415; 80053; 80061; 81003; 81015; 83036; 85025; 87086

== ENCOUNTER → 2022-02-27 13:36 | Outpatient (CLI) | payer MEDICARE, OTHER, SELFPAY ==
[2022-02-27 15:00] LABS: Appearance Urine UA SL CLOUDY; Bilirubin Urine UA NEGATIVE (NEGATIVE); Color Urine UA YELLOW; Glucose Urine UA NEGATIVE (Negative); Ketones Urine UA NEGATIVE (NEGATIVE); Leukocyte Esterase Urine UA 1+ (NEGATIVE); Nitrite Urine UA POSITIVE (Negative); Occult Blood Urine UA 1+ (Negative); Protein Urine UA 2+ (Negative); Specific Gravity Urine UA 1.025 (1.000-1.035); Urobilinogen Urine UA 0.2 E.U./dL (0.2)
[2022-02-27 15:04] LABS: RBC Urine 1-5/HPF (0-5/HPF); WBC Urine 10-30/HPF (0-5/HPF)
[2022-02-27 15:05] LABS: Bacteria Urine Many (>30); Culture Indicated Urine Specimen Cultured; Squamous Epithelial Cell Urine 1-5 /HPF (0-5/HPF)
== END ==
PROVIDERS: Family Provider Internal Medicine; PCP Family Medicine; Visit Provider Family Medicine
DX: R31.9 Hematuria, unspecified (principal)
CPT/HCPCS: 81001; 87086